=== PATIENT | male | born 1985 | race Caucasian/White ===

== ENCOUNTER 2019-02-12 12:55 | Emergency (ER) | payer OTHER ==
[~2019-02-12] VITALS: Ht 177.8 cm; Wt 121.1 kg
[2019-02-12 13:01] VITALS: BP 144/105
--- NOTE | 2019-02-12 13:01 | NUR ---
PT ARRIVED TO ED C/O HIGH BLOOD PRESSURE X THIS AM. PT DENIES ANY PAIN,. 4MM PERRLA. NO TRIPP,N,V. SKIN IS WARM TO TOUCH AND HAS A RASH ON LEFT UPPER ARM. PT STATES HE TOOK IS BP MED LISONPRIL 2HR AGO. PT ALSO STATES HE FEELS TINGLNG SENSATION ON LEFT ARM. CMS INTACT. VSS. NO DISTRESS NOTED. DENIES ANY HEAD TRUAMA OR INJURY. NKA. PMH: HTN, HIGH CHOLESTEROL.
--- NOTE | 2019-02-12 13:05 | NUR ---
PTS BP ON R ARM IS 140/99 PTS BP ON L ARM IS 144/105
--- NOTE | 2019-02-12 13:06 | NUR ---
PT AMB TO BED 1 WITH STEADY GAIT
--- NOTE | 2019-02-12 14:08 | NUR ---
TRASNFER TO CT VIA WHEELCHAIR.
[2019-02-12 14:37] LABS: BASOPHILS % (AUTO) 0.6 % (0.0-2.0); EOSINOPHILS # (AUTO) 0.2 K/uL (0-0.4); EOSINOPHILS % (AUTO) 2.3 % (0.0-4.0); HEMOGLOBIN 17.6 g/dL (12.0-18.0); LYMPHOCYTES # (AUTO) 1.9 K/uL (2.0-11.5); LYMPHOCYTES % (AUTO) 28.4 % (20.5-51.1); MEAN CORPUSCULAR HEMOGLOBIN 32 pg (27-31); MEAN CORPUSCULAR HGB CONC 35 g/dL (33-37); MEAN CORPUSCULAR VOLUME 91.4 fL (80-94); MONOCYTES # (AUTO) 0.4 K/uL (0.8-1.0); MONOCYTES % (AUTO) 6.6 % (1.7-9.3); NEUTROPHILS # (AUTO) 4.2 K/uL (1.8-7.7); NEUTROPHILS % (AUTO) 62.1 % (42.2-75.2); PLATELET COUNT (AUTO) 238 K/uL (140-450); RED BLOOD CELL COUNT(AUTO) 5.58 MIL/uL (4.20-6.10); RED CELL DISTRIBUTION WIDTH 13.3 % (11.6-13.7); WHITE BLOOD COUNT (AUTO) 6.8 K/uL (4.8-10.8)
[2019-02-12 14:46] LABS: CARBON DIOXIDE 30.2 mmol/L (21-32); CREATININE 0.8 mg/dL (0.7-1.3); POTASSIUM 3.2 mmol/L (3.5-5.1)
[2019-02-12 15:22] LABS: BARBITURATE, URINE NEG. ng/ml (NEG <=200); BENZODIAZEPINE, URINE NEG. ng/mL (NEG <=200); CANNABINOID, URINE NEG. ng/mL (NEG <=50); COCAINE, URINE NEG. ng/mL (NEG <=300); OPIATE, URINE NEG. ng/mL (NEG <=2000); PHENCYCLIDINE SCREEN,URINE NEG. ng/mL (NEG <=25)
--- NOTE | 2019-02-12 16:00 | NUR ---
PT STATES HE WOULD LIKE TO LEAVE STATES " I HAVE ALOT OF THINGS TO DO CAN I FOLLOW UP WITH MY PCP AND GET THESE LABS DONE, IM FEELING BETTER ALREADY". DR GARCIA MADE AWARE OF PT STATUS.
[2019-02-12] MEDS ORDERED: POTASSIUM CHLORIDE 10 MEQ TABER PO ONE (16:50)
[2019-02-12 17:16] VITALS: BP 143/90
--- NOTE | 2019-02-12 17:16 | NUR ---
DPatient discharged with v/s stable. Written and verbal after care instructions given and explained. Patient verbalized understanding. Ambulatory with steady gait. All questions addressed prior to discharge. Advised to follow up with PMD.
== END 2019-02-12 17:16 | disposition home or self-care (01) ==
LOC: MED 12:55
DX: I10 Essential (primary) hypertension (principal); R20.2 Paresthesia of skin; E78.00 Pure hypercholesterolemia, unspecified
CPT/HCPCS: 36415; 70450; 80048; 80305; 84484; 85025; 93005; 99284

== ENCOUNTER 2019-06-11 18:52 | Observation (INO) | payer OTHER ==
[~2019-06-11] VITALS: Ht 180.3 cm; Wt 122.0 kg
[2019-06-11 10:12] VITALS: BP 142/95
--- NOTE | 2019-06-11 10:12 | NUR ---
PATIENT ARRIVED FROM ER VIA GURNEY. NO DISTRESS NOTED. DENIES ANY PAIN. AAOX4, CALM, COOPERATIVE, SKIN COLOR APPROPRIATE TO ETHNICITY, WARM TO TOUCH. SKIN INTACT. IV SITE INTACT, PATENT, ON SALINE LOCK. RESPIRATIONS EVEN, UNLABORED, ON ROOM AIR. ORIENTED PATIENT TO ROOM AND CALL LIGHT. REVIEWED PLAN OF CARE WITH PATIENT. PATIENT VERBALIZED COMPLETE UNDERSTANDING. SAFETY MEASURES IN PLACE, CALL LIGHT WITHIN REACH. WILL CONTINUE TO MONITOR.
[2019-06-11 19:01] VITALS: BP 152/94
--- NOTE | 2019-06-11 19:22 | NUR ---
BIB SELF REPORTS BEING SEEN BY PCP TOOL MAKER BENCH. STATES SHE FORGOT TO GIVE HIM A REFILL ON HIS MEDICATION FOR HTN AND HLD. PATIENT ALSO STATES HE IS HAVING NUMBNESS AND TINGLING IN HIS LEFT ARM. PATIENT STATES HE HAS HAD THESE SYMPTOMS IN THE PAST WHEN HE HAD A TIA. PATIENT STATES HE DOES NOT FEEL HIMSELF. PUPILS EQUAL AND REACTIVE, SPEECH CLEAR. LUNGS CLEAR. REPORTS COUGH AND COLD SYMPTOMS BUT RECIEVED TREATMENT FOR THOSE SYMPTOMS BY PCP. HOOKED UP TO MONITOR. BP HIGH. ERMD AWARE OF STATUS.
--- NOTE | 2019-06-11 19:24 | NUR ---
PATIENT ASSESSMENT COMPLETED. BASED ON NEW INFORMATION PROVIDED BY PATIENT. RISHI LEVEL CHANGED TO LEVEL 3.
[2019-06-11 19:46] LABS: BASOPHILS % (AUTO) 0.5 % (0.0-2.0); EOSINOPHILS # (AUTO) 0.3 K/uL (0-0.4); EOSINOPHILS % (AUTO) 4.8 % (0.0-4.0); HEMATOCRIT 42.6 % (36-52); HEMOGLOBIN 15.2 g/dL (12.0-18.0); LYMPHOCYTES # (AUTO) 1.4 K/uL (2.0-11.5); LYMPHOCYTES % (AUTO) 24.5 % (20.5-51.1); MEAN CORPUSCULAR HEMOGLOBIN 31 pg (27-31); MEAN CORPUSCULAR HGB CONC 36 g/dL (33-37); MEAN CORPUSCULAR VOLUME 86.5 fL (80-94); MONOCYTES # (AUTO) 0.6 K/uL (0.8-1.0); MONOCYTES % (AUTO) 11.3 % (1.7-9.3); NEUTROPHILS # (AUTO) 3.3 K/uL (1.8-7.7); NEUTROPHILS % (AUTO) 58.9 % (42.2-75.2); PLATELET COUNT (AUTO) 173 K/uL (140-450); RED BLOOD CELL COUNT(AUTO) 4.93 MIL/uL (4.20-6.10); RED CELL DISTRIBUTION WIDTH 13.6 % (11.6-13.7); WHITE BLOOD COUNT (AUTO) 5.7 K/uL (4.8-10.8)
--- NOTE | 2019-06-11 19:56 | NUR ---
DR. HANNA AT BEDSIDE.
[2019-06-11 20:02] LABS: ALBUMIN 3.8 g/dL (3.4-5.0); ANION GAP 6.7 (8-16); CARBON DIOXIDE 31.9 mmol/L (21-32); CREATININE 0.9 mg/dL (0.6-1.3); POTASSIUM 3.6 mmol/L (3.5-5.1); TOTAL BILIRUBIN 0.6 mg/dL (0.0-1.0)
--- NOTE | 2019-06-11 20:29 | NUR ---
PT WAS TAKEN TO CT BY WHEEL CHAIR
--- NOTE | 2019-06-11 21:44 | NUR ---
AMBULATED TO THE RESTROOM INDEPENDANTLY
--- NOTE | 2019-06-11 22:10 | NUR ---
PT ADMITTED TO TELE UNIT UNDER THE CARE OF DR TORO. TRASPORTED ON MONITOR ON [facility]. PT STABLE DURING TRANSFER. REPORT GIVEN TO GONZÁLEZ LANDEROS.
[2019-06-11] MEDS ORDERED: ATOR10TA PO (22:17)
[2019-06-11] MEDS ORDERED: LISI10TA11 PO (22:32)
[2019-06-11] MEDS ORDERED: HYDROcodone/APAP 5/325 MG 1 TAB TAB PO PRN (22:45)
[2019-06-11] MEDS ORDERED: ACETAMINOPHEN 325 MG TAB PO PRN (22:45)
[2019-06-11] MEDS ORDERED: NITROGLYCERIN 0.4 MG TAB SL PRN (22:45)
[2019-06-11] MEDS ORDERED: ZOLPIDEM 5 MG TAB PO PRN (22:45)
[2019-06-11] MEDS ORDERED: ONDANSETRON 4 MG/2 ML VIAL IVP PRN (22:45)
[2019-06-11] MEDS ORDERED: NACL 0.45% 1,000 ML IV ONE (23:30)
[2019-06-12] MEDS: OSELTAMIVIR PHOSPHATE 75 MG CAP PO SCH ×2 (00:09→08:53)
--- NOTE | 2019-06-12 00:17 | NUR ---
PATIENT SITTING DOWN IN BED WATCHING TV. NO DISTRESS NOTED. SCHEDULED MEDICATIONS DUE GIVEN. WILL CONTINUE TO MONITOR.
[2019-06-12] MEDS ORDERED: INFLUENZA VACCINE QUAD 0.5 ML SYR IMVAC PRN (01:25)
--- NOTE | 2019-06-12 02:17 | NUR ---
PATIENT LYING DOWN IN BED SLEEPING, AROUSABLE BY VOICE. NO DISTRESS NOTED. WILL CONTINUE TO MONITOR.
[2019-06-12 04:00] VITALS: BP 130/88
--- NOTE | 2019-06-12 04:55 | NUR ---
PATIENT LYING DOWN IN BED SLEEPING, AROUSABLE BY VOICE. NO DISTRESS NOTED. DENIES ANY PAIN. WILL CONTINUE TO MONITOR.
[2019-06-12 07:01] LABS: HEMATOCRIT 43.5 % (36-52); HEMOGLOBIN 15.7 g/dL (12.0-18.0); MEAN CORPUSCULAR HEMOGLOBIN 31 pg (27-31); MEAN CORPUSCULAR HGB CONC 36 g/dL (33-37); MEAN CORPUSCULAR VOLUME 86.1 fL (80-94); PLATELET COUNT (AUTO) 177 K/uL (140-450); RED BLOOD CELL COUNT(AUTO) 5.06 MIL/uL (4.20-6.10); RED CELL DISTRIBUTION WIDTH 13.7 % (11.6-13.7); WHITE BLOOD COUNT (AUTO) 7.5 K/uL (4.8-10.8)
--- NOTE | 2019-06-12 07:25 | NUR ---
RECEIVED PT FROM FIBERGLASS BOAT ASSEMBLY SUPERVISOR NURSEGONZÁLEZ, PT IS ASLEEP AND LYING ON THE BED WITH SIDE RAILS AND CALL L;IGHT WITHIN REACH,VISIBLE CHEST RISE, PT IS ON DROPLET ISOLATION FOR INFLUENZA A POSITIVE, ON ROOM AIR AND IV LINE INTACT ON THE LEFT AC G. 20 WITH 1/2 NS INFUSING AT 70ML/HR, NO SIGN OF DISTRESS NOTED AND WILL MONITOR PT.
[2019-06-12 07:38] LABS: EOSINOPHILS % (MANUAL) 5 % (0-4); LYMPHOCYTES % (MANUAL) 30 % (20-46); MONOCYTES % (MANUAL) 11 % (5-12)
[2019-06-12 08:00] VITALS: BP 157/96
[2019-06-12 08:03] LABS: ALBUMIN 3.7 g/dL (3.4-5.0); ANION GAP 12.1 (8-16); CARBON DIOXIDE 30.5 mmol/L (21-32); CREATININE 0.9 mg/dL (0.6-1.3); POTASSIUM 3.6 mmol/L (3.5-5.1); TOTAL BILIRUBIN 0.6 mg/dL (0.0-1.0)
--- NOTE | 2019-06-12 08:53 | NUR ---
PT WAS GIVEN THE SCHEDULED AM MEDICATIONS NOW, PARAMETER CHECKED AND TOLERATED IT. WILL MONITOR PT.
[2019-06-12] MEDS ORDERED: LISINOPRIL 10 MG TAB PO SCH (09:00)
[2019-06-12] MEDS ORDERED: ECOTRIN 81 MG TABEC PO SCH (09:00)
[2019-06-12] MEDS ORDERED: ENOXAPARIN 40 MG/0.4 ML SYR SUBQ SCH (09:00)
--- NOTE | 2019-06-12 09:03 | NUR ---
PATIENT HAS BEEN SCREENED AND CATEGORIZED MODERATE NUTRITION RISK. PATIENT WILL BE SEEN WITHIN 3-5 DAYS OF ADMISSION. 06/15/2019-06/17/[address]
--- NOTE | 2019-06-12 09:45 | NUR ---
DR. TORO CAME TO PT'S ROOM AND SPOKE TO PT REGARDING PLAN OF CARE.
[2019-06-12 12:00] VITALS: BP 138/90
--- NOTE | 2019-06-12 14:25 | NUR ---
DR. XOING WENT TO THE PT'S ROOM ASSESSED AND TALKED TO PT.
[2019-06-12 14:42] VITALS: BP 142/100
--- NOTE | 2019-06-12 15:16 | NUR ---
Boiler Tender Note: [facility] Patient: Micha Herzog : 1985 Age/Sex: 33/M Unit#: [id number] Room/Bed: 113/A User: Casey Garcia Date: 06/12/19 15:11 Type: CM: Discharge Planning Basic Screen: Yes High Risk DC Screen [place]: [place] Relationship: [id number] Pre-Admission Living Arrangements: Lives with Other Prior ADL Independent Current Home Health Name/Tel: N/A Current Name/Tel: N/A Current Hospice Name/Tel: N/A Current Dialysis Name/Tel: N/A Healthcare Decision Maker: Patient Advance Directive No Physician Orders for Life Sustaining Treatment Form No Information Taught: Advance Directive Person Taught: Patient Teaching Tools: Verbal Factors Affecting Learning: None Participation Level: Refused Evaluation: Verbalizes Understanding Needs Additional Education: No Discipline: Case Mgt/Social Svcs Tentative Discharge Plan/Destination: No Needs Identified Will require assistance post discharge: No Referred to Performance Reporter: No Tentative Discharge Plan Summary: Patient is a 33-year-old male admitted for chest pain. Patient has PMHX of hypertension, hyperlipedemia, obesity, and TIA. Patient was admitted from home where hel alphonso with his children and [id number]. SW met with patient at bedside to verify demographics. Patient reported no history of mental health and no history of susbtance abuse. Tentative discharge plan is for patient to return home. No further needs identified. Signature: ISAIAH Franklin Date: Jun 12, 2019 Time: 15:15
[2019-06-12 16:42] VITALS: BP 142/100
--- NOTE | 2019-06-12 16:42 | NUR ---
DISCHARGED PT TO HOME WITH FAMILY, DISCHARGED TEACHINGS AND PRESCRIPTION INSTRUCTION GIVEN TO PT AND PT VERBALIZED UNDERSTANDING. IV LINE AND ARM BAND REMOVED, PT REFUSED TO RECEIVE FLU VACCINE AND VERBALIZED THAT HE WANTS TO GET BETTER FIRST AND WILL GET FLU VACCINE WHEN HE IS BETTER. PT IS STABLE AT THIS TIME.
[2019-06-12] MEDS ORDERED: ATORVASTATIN 20 MG TAB PO SCH (21:00)
== END 2019-06-12 16:45 | disposition home or self-care (01) ==
LOC: MED 18:52 → MMU 21:46 → MTU 22:12
PROVIDERS: ADMIT Internal Medicine Pulmonary Disease; ATTEND Internal Medicine Pulmonary Disease
DX: J10.1 Influenza due to other identified influenza virus with other respiratory manifestations (principal); R07.9 Chest pain, unspecified; R51 Headache; I10 Essential (primary) hypertension; E78.5 Hyperlipidemia, unspecified; E66.9 Obesity, unspecified; Z86.73 Personal history of transient ischemic attack (TIA), and cerebral infarction without residual deficits; Z87.891 Personal history of nicotine dependence
CPT/HCPCS: 36415; 70450; 80053; 84484; 85025; 87081; 87804; 93005; 96372; 99285; G0378; J1650

== ENCOUNTER 2019-06-16 01:10 | Inpatient (IN) | payer OTHER ==
[~2019-06-16] VITALS: Ht 180.3 cm; Wt 127.5 kg
[2019-06-16 01:10] VITALS: BP 158/106
[~2019-06-16 01:10] MED LIST: ATOR10TA PO; LISI10TA11 PO
--- NOTE | 2019-06-16 01:22 | NUR ---
pt ambulated to bed #6.
--- NOTE | 2019-06-16 01:23 | NUR ---
33 Y/O MALE C/O CHEST PAIN X 1HR. RATES PAIN 7/10 AND DESCRIBES IT TIGHTNESS AND IS NONRADIATING. VSS. SOB AND DIAPHORESIS PRESENT. PT WGOT OFF WORK AT 0100 TODAY BEFORE ONSET OF SYMPTOMS STARTED. LUNG SOUNDS CLEAR ALL THROUGHOUT. HEART SOUND S1S2 PRESENT. CAP REFILL < 3, SKIN IS WARM TO TOUCH, NO EDEMA PRESENT. A & O X4. STEADY GAIT. RADIAL PULSES +2 PRESENT ON BUE. +NAUSEA. PT STATES HE WAS ADMITTED ON FRIDAY WAS D/C FRIDAY FOR HAVING SOB. NKA. PMH: HTN, TIA, HIGH CHOLESTEROL, GALL BLADDER REMOVAL,
--- NOTE | 2019-06-16 01:23 | NUR ---
Dr. Mcguire examining patient.
[2019-06-16] MEDS ORDERED: NACL 0.9% 1,000 ML IV ONE (01:30)
[2019-06-16] MEDS ORDERED: ASPIRIN 81 MG TAB.CHEW PO ONE (01:30)
[2019-06-16] MEDS ORDERED: NITROGLYCERIN 2% 1 GM PKT TP ONE (01:30)
[2019-06-16 01:43] LABS: EOSINOPHILS # (AUTO) 0.2 K/uL (0-0.4); HEMOGLOBIN 15.1 g/dL (12.0-18.0); LYMPHOCYTES # (AUTO) 2.8 K/uL (2.0-11.5); MONOCYTES # (AUTO) 0.4 K/uL (0.8-1.0); NEUTROPHILS # (AUTO) 3.2 K/uL (1.8-7.7); WHITE BLOOD COUNT (AUTO) 6.6 K/uL (4.8-10.8)
--- NOTE | 2019-06-16 01:46 | NUR ---
XR AT BEDSIDE.
[2019-06-16 01:48] LABS: BASOPHILS % (AUTO) 0.4 % (0.0-2.0); LYMPHOCYTES % (AUTO) 41.7 % (20.5-51.1); MEAN CORPUSCULAR HEMOGLOBIN 31 pg (27-31); MEAN CORPUSCULAR HGB CONC 36 g/dL (33-37); MEAN CORPUSCULAR VOLUME 86.2 fL (80-94); MONOCYTES % (AUTO) 6.1 % (1.7-9.3); NEUTROPHILS % (AUTO) 48.8 % (42.2-75.2); PLATELET COUNT (AUTO) 200 K/uL (140-450); RED BLOOD CELL COUNT(AUTO) 4.89 MIL/uL (4.20-6.10); RED CELL DISTRIBUTION WIDTH 13.5 % (11.6-13.7)
--- NOTE | 2019-06-16 01:52 | NUR ---
PUT PT ON 2L NC FOR SOB AND SPO2 BEING 93%. PT SPO2 NOW IS 99% ON 2L NC.
[2019-06-16 01:53] LABS: HEMATOCRIT 45.3 % (36-52)
[2019-06-16 01:57] LABS: ANION GAP 8.2 (8-16); CARBON DIOXIDE 31.2 mmol/L (21-32); CREATININE 0.9 mg/dL (0.6-1.3); POTASSIUM 3.4 mmol/L (3.5-5.1); TOTAL BILIRUBIN 0.6 mg/dL (0.0-1.0)
--- NOTE | 2019-06-16 02:15 | NUR ---
LAB CALLED; CRITICAL LAB VALUE REPORT: TROP: 0.113. DESIREE JOSE IS AWARE.
[2019-06-16] MEDS ORDERED: MORPHINE SULFATE 2 MG/ML SYR IVP ONE (02:25)
[2019-06-16] MEDS ORDERED: ENOXAPARIN 120 MG/0.8 ML SYR SUBQ ONE ×2 (02:25→02:35)
[2019-06-16] MEDS ORDERED: ACETAMINOPHEN 325 MG TAB PO PRN (02:30)
[2019-06-16] MEDS ORDERED: DOCUSATE SODIUM 100 MG GELCAP PO PRN (02:30)
[2019-06-16 02:54] LABS: FREE T4 (FREE THYROXINE) 0.96 ng/dL (0.76-1.46); MAGNESIUM 1.9 mg/dL (1.8-2.4); PHOSPHORUS 3.2 mg/dL (2.5-4.9); THYROID STIMULATING HORMONE 1.18 uIU/mL (0.34-3.74)
[2019-06-16] MEDS ORDERED: MULTIVITAMIN-12 10 ML, THIAMINE 100 MG, MAGNESIUM SULFATE 50% 2,000 MG, FOLIC ACID 1 MG... IV SCH ×5 (03:05)
[2019-06-16] MEDS ORDERED: LORazepam 2 MG/ML VIAL IVP PRN (03:05)
[2019-06-16 03:08] LABS: APPEARANCE,URINE CLEAR (CLEAR); BILIRUBIN,URINE NEGATIVE (NEGATIVE); BLOOD, URINE NEGATIVE (NEGATIVE); COLOR,URINE YELLOW (YELLOW); LEUKOCYTE ESTERASE ,URINE NEGATIVE (NEGATIVE); NITRITE, URINE NEGATIVE (NEGATIVE); UGLUCOSE NEGATIVE (NEGATIVE)
--- NOTE | 2019-06-16 03:10 | NUR ---
Patient will be admitted to care of dr. east. Admited to tele. Will go to room 111a. Belongings list completed. Report to gunnar hathaway.
--- NOTE | 2019-06-16 03:10 | NUR ---
PT ARRIVED AT UNIT VIA GURNEY, PT STABLE, NO DISTRESS NOTED, AMBULATED TO BED, TOLERATED WELL, RECEIVED REPORT ASSISTANT FLOOR COVERING PRINTER MAEGAN, IV TO R AC 20 G PATENT INTACT, PT ON 2LPM O2 VIA NC, NO SOB NOTED, ORIENT PT TO BED, ROOM, CALL LIGHT, MRSA SWAB TAKEN, V/S TAKEN, INITIAL ASSESSMENT DONE, ALL SAFETY PRECAUTION MET, CALL LIGHT WITHIN REACH, WILL CONTINUE TO MONITOR.
[2019-06-16 03:17] VITALS: BP 138/91
[2019-06-16 03:32] LABS: BARBITURATE, URINE NEG. ng/ml (NEG <=200); BENZODIAZEPINE, URINE NEG. ng/mL (NEG <=200); CANNABINOID, URINE NEG. ng/mL (NEG <=50); COCAINE, URINE NEG. ng/mL (NEG <=300); OPIATE, URINE NEG. ng/mL (NEG <=2000); PHENCYCLIDINE SCREEN,URINE NEG. ng/mL (NEG <=25)
[2019-06-16] MEDS: NACL 0.9% 1,000 ML IV SCH ×3 (04:00→20:52)
--- NOTE | 2019-06-16 04:00 | NUR ---
DR CLOUD AT BEDSIDE TALKING TO PT.
[2019-06-16] MEDS ORDERED: NITROGLYCERIN 0.4 MG TAB SL PRN (04:55)
--- NOTE | 2019-06-16 07:18 | NUR ---
ENDORSED PT TO DAY SHIFT NURSE KATIE RN, PT STABLE, NO DISTRESS NOTED, CALL LIGHT WITHIN REACH
--- NOTE | 2019-06-16 07:26 | NUR ---
SHIFT REPORT RECEIVED FROM CLINICAL SUPPORT SPECIALIST NURSE. PT IS IN BED SLEEPING. NO DISTRESS NOTED. WILL CONTINUE TO MONITOR. CALL LIGHT IN REACH.
[2019-06-16] MEDS: ONDANSETRON 4 MG/2 ML VIAL IM/IVP PRN ×2 (07:59→17:29)
[2019-06-16 08:00] VITALS: BP 108/72
--- NOTE | 2019-06-16 08:48 | NUR ---
PATIENT HAS BEEN SCREENED AND CATEGORIZED MODERATE NUTRITION RISK. PATIENT WILL BE SEEN WITHIN 3-5 DAYS OF ADMISSION. 06/18/19 06/20/[address]
[2019-06-16] MEDS ORDERED: HYDROcodone/APAP 7.5/325 MG 1 TAB PO PRN (08:55)
[2019-06-16] MEDS ORDERED: CYCLOBENZAPRINE 10 MG TAB PO PRN (08:55)
[2019-06-16] MEDS: ASPIRIN 81 MG TAB.CHEW PO SCH (09:21)
[2019-06-16] MEDS: LISINOPRIL 10 MG TAB PO SCH (09:39)
[2019-06-16] MEDS: METOPROLOL 25 MG TAB PO SCH ×2 (09:40→20:37)
--- NOTE | 2019-06-16 10:58 | NUR ---
PT IS IN BED SLEEPING. HOWEVER PT IS RESPONSIVE WHEN CALLED. NO DISTRESS NOTED. NO COMPLAINS OF PAIN . WILL CONTINUE TO MONITOR. CALL LIGHT IN REACH.
[2019-06-16 12:00] VITALS: BP 110/64
--- NOTE | 2019-06-16 13:24 | NUR ---
PT IS IN SLEEPING IN BED. PT IS RESPONSIVE WHEN CALLED.. NO COMPLAINS OF PAIN. WILL CONTINUE TO MONITOR. CALL LIGHT IN REACH.
[2019-06-16] MEDS: ENOXAPARIN 120 MG/0.8 ML SYR SUBQ SCH ×2 (13:39→20:42)
[2019-06-16 16:00] VITALS: BP 119/84
--- NOTE | 2019-06-16 16:49 | NUR ---
DISCHARGE PLANNING: THIS IS A 33 Y/O MALE PATIENT FROM HOME, WHO CAME IN DUE TO CHEST PAIN. PAST MEDICAL HISTORY INCLUDE HTN, HYPERLIPIDEMIA, TIA AND OBESITY. INITIAL DIAGNOSIS OF CHEST PAIN AND ELEVATED TROPONIN. CURRENT LABS INCLUDE WBC 6.6, H/H 15.1/45.3, NA/K 137/3.4, BUN/CREA 10/0.9. CARDIO CONSULT IN PLACE. DC PLAN BACK TO HOME ONCE STABLE. Addendum: 06/17/19 at 1517 by Melissa Gerber CM DC PLANNING: SEEN BY WHANAU SUPPORT WORKER , NORMAL ECHO CONTINUE CARDIAC MEDS RECOMMENDED OUT PT STRESS TEST DC PLAN TO GO HOME 06/18/19 RA TO FOLLOW
--- NOTE | 2019-06-16 18:00 | NUR ---
PT IS SITTING IN BED AT THIS TIME. PT IS EATING DINNER. PT SAYS HE DOES NOT HAVE GOOD APPETITE. SAFETY MEASURES IN CHECK. CALL LIGHT IN REACH.
[2019-06-16] MEDS ORDERED: POTASSIUM CHLORIDE 10 MEQ TABER PO SCH (18:10)
--- NOTE | 2019-06-16 19:25 | NUR ---
SHIFT REPORT GIVEN TO BILLING CUSTOMER SERVICE REPRESENTATIVE NURSE. PT IS N STABLE CONDITION. CALL LIGHT IN REACH.
--- NOTE | 2019-06-16 19:26 | NUR ---
RECEIVED BEDSIDE REPORT FROM DAY RN. PT IS AAOX4. RESPIRATIONS ARE EQUAL AND UNLABORED ON ROOM AIR. PT IS ON DROPLET PRECAUTION FOR TESTING INFLU A + ON LAST ADMISSION CURRENTLY NO TAMIFLU PER RN WILL F/U WITH MD. PT IS AMBULATORY AND ABLE TO MAKE NEEDS KNOWN. SKIN IS INTACT AND AMBULATORY. IV ON RAC 20G NS INFUSING AT 100ML/H PER ORDERS. DX CHEST PAIN AND ELEVATED TROP. LATEST TROP: 0.115 NEXT TO BE DRAWN TOMORROW AM AT 0600. POC DISCUSSED WITH PT. CALL LIGHT IS WITHIN REACH. WILL CONTINUE TO MONITOR.
[2019-06-16 20:00] VITALS: BP 116/74
[2019-06-16] MEDS: ATORVASTATIN 20 MG TAB PO SCH (20:36)
--- NOTE | 2019-06-16 20:37 | NUR ---
OSCAR MEDICATIONS GIVEN PER ORDERS. PT DENIES ANY CHEST PAIN TODAY STATES HES BEEN HAVING A HEADACHE BUT NOT AT THIS TIME. POC DISCUSSED WITH PT. PT VERBALIZED UNDERSTANDING. PER MD WILL PUT IN ORDER FOR TAMIFLU PT WAS HERE ON 06/11 AND WAS POSITIVE FOR INFLUENZA A+. ALL SAFETY MEASURES ARE IN PLACE. WILL CONTINUE TO MONITOR.
[2019-06-16] MEDS: OSELTAMIVIR PHOSPHATE 75 MG CAP PO SCH (21:10)
[2019-06-16] MEDS: ZOLPIDEM 5 MG TAB PO PRN (21:10)
--- NOTE | 2019-06-16 21:10 | NUR ---
TAMIFLU GIVEN PER ORDERS. PER RESIDENT PT TO GET TWO MORE DOSES ONE TONIGHT AND ANOTHER TOMORROW AM. ADMINISTERED PRN AMBIEN. EDUCATED PT ON MEDICATIONS VERBALIZED UNDERSTANDING. ALL NEEDS MET AT THIS TIME. CALL LIGHT IS WITHIN REACH.
--- NOTE | 2019-06-16 22:30 | NUR ---
PATIENT IS SLEEPING COMFORTABLY IN BED WITH EYES CLOSED. CHEST RISE AND FALL NOTED. CALL LIGHT IS WITHIN REACH. WILL CONTINUE TO MONITOR.
[2019-06-17] VITALS: BP 133/76
--- NOTE | 2019-06-17 00:15 | NUR ---
VITAL SIGNS ARE WITHIN NORMAL LIMITS. ALL SAFETY MEASURES ARE IN PLACE. CALL LIGHT IS WITHIN REACH. WILL CONTINUE TO MONITOR.
--- NOTE | 2019-06-17 02:30 | NUR ---
MADE ROUNDS. PT IS SLEEPING COMFORTABLY IN BED WITH EYES CLOSED. SAFETY MEASURES ARE IN PLACE. CALL LIGHT IS WITHIN REACH.
[2019-06-17 04:00] VITALS: BP 144/84
--- NOTE | 2019-06-17 04:05 | NUR ---
VITAL SIGNS ARE WITHIN NORMAL LIMITS. SAFETY MEASURES ARE IN PLACE. WILL CONTINUE TO MONITOR.
[2019-06-17 07:01] LABS: BASOPHILS % (AUTO) 0.5 % (0.0-2.0); EOSINOPHILS # (AUTO) 0.2 K/uL (0-0.4); EOSINOPHILS % (AUTO) 2.7 % (0.0-4.0); HEMATOCRIT 41.6 % (36-52); HEMOGLOBIN 14.9 g/dL (12.0-18.0); LYMPHOCYTES # (AUTO) 2.9 K/uL (2.0-11.5); LYMPHOCYTES % (AUTO) 46.7 % (20.5-51.1); MEAN CORPUSCULAR HEMOGLOBIN 31 pg (27-31); MEAN CORPUSCULAR HGB CONC 36 g/dL (33-37); MEAN CORPUSCULAR VOLUME 87.4 fL (80-94); MONOCYTES # (AUTO) 0.3 K/uL (0.8-1.0); MONOCYTES % (AUTO) 5.4 % (1.7-9.3); NEUTROPHILS # (AUTO) 2.8 K/uL (1.8-7.7); NEUTROPHILS % (AUTO) 44.7 % (42.2-75.2); PLATELET COUNT (AUTO) 202 K/uL (140-450); RED BLOOD CELL COUNT(AUTO) 4.76 MIL/uL (4.20-6.10); RED CELL DISTRIBUTION WIDTH 13.5 % (11.6-13.7); WHITE BLOOD COUNT (AUTO) 6.2 K/uL (4.8-10.8)
--- NOTE | 2019-06-17 07:17 | NUR ---
GAVE BEDSIDE REPORT TO DAY RN. PT ENDORSED IN STABLE CONDITION.
[2019-06-17 07:18] LABS: ANION GAP 4.4 (8-16); CARBON DIOXIDE 34.3 mmol/L (21-32); CREATININE 0.8 mg/dL (0.6-1.3); POTASSIUM 3.7 mmol/L (3.5-5.1)
--- NOTE | 2019-06-17 07:20 | NUR ---
RECEIVED PT FROM LEGAL STENOGRAPHER NURSE . PT IS AWAKE ORIENTED WITH PERIPHERAL LINE G20 ON RIGHT AC. NO C/O PAIN, NO SOB AND AFEBRILE. DROPLET PRECAUTION FOR FLU A. OBSERVED ISO PRECAUTION. WILL CONT TO MONITOR PATIENT.
[2019-06-17 07:30] LABS: MAGNESIUM 2.2 mg/dL (1.8-2.4); PHOSPHORUS 2.7 mg/dL (2.5-4.9)
[2019-06-17 08:00] VITALS: BP 130/80
[2019-06-17] MEDS: OSELTAMIVIR PHOSPHATE 75 MG CAP PO SCH (08:09)
[2019-06-17] MEDS: LISINOPRIL 10 MG TAB PO SCH (08:10)
[2019-06-17] MEDS: METOPROLOL 25 MG TAB PO SCH ×2 (08:11→21:00)
[2019-06-17] MEDS: ASPIRIN 81 MG TAB.CHEW PO SCH (08:11)
--- NOTE | 2019-06-17 08:20 | NUR ---
DR LOVE AND RESIDENT'S ROOM. SPOKE TO PT ABOUT PLAN OF CARE. PT VERBALIZED UNDERSTANDING. WILL CONT TO MONITOR PT.
[2019-06-17] MEDS: ENOXAPARIN 120 MG/0.8 ML SYR SUBQ SCH (08:25)
--- NOTE | 2019-06-17 08:25 | NUR ---
DUE MEDS GIVEN TO PT. PARAMETERS CHECKED. BP 130/80, MD 68 MANUALLY, PLT 202. NO SIGN OF DISTRESS. WILL CONT TO MONITOR
--- NOTE | 2019-06-17 08:30 | NUR ---
DR XIONG, CAME TO PT ROOM ASSESSED AND S[POKE TO PT. STATED PLAN OF CARE. PT VERBALIZED UNDERSTANDING, WAS INFORMED OF LATEST TROPONIN 0.127. MD VERBALIZED TO STOP CHECKING. ACKNOWLEDGED AND WILL CONT TO MONITOR PT
[2019-06-17 08:39] LABS: CHOL/HDL RATIO 4.5 (1-4.5)
[2019-06-17] MEDS: NACL 0.9% 1,000 ML IV SCH ×2 (10:28→19:02)
[2019-06-17 12:03] VITALS: BP 131/77
[2019-06-17 16:00] VITALS: BP 141/93
--- NOTE | 2019-06-17 19:02 | NUR ---
PT WAS GIVEN TYLENOL FOR C/O HEADACHE AND A NEW BAG OF NS WAS STARTED TO PT NOW.
--- NOTE | 2019-06-17 19:25 | NUR ---
ENDORSED PT TO MAIN LINE STATION ENGINEER NURSEJUHI FOR CONTINUITY OF CARE. Addendum: 06/17/19 at 1932 by Keya Farrell RN ENDORSED PT TO MAIN LINE STATION ENGINEER NURSEJUHI FOR CONTINUITY OF CARE Addendum: 06/17/19 at 1932 by Keya Farrell RN ENDORSED PT TO MAIN LINE STATION ENGINEER NURSEMIKAEL FOR CONTINUITY OF CARE Addendum: 06/17/19 at 1933 by Keya Farrell RN ENDORSED PT TO MAIN LINE STATION ENGINEER NURSEMIKAEL FOR CONTINUITY OF CARE
--- NOTE | 2019-06-17 19:29 | NUR ---
RECEIVED BEDSIDE REPORT FROM DAY RN. PT IS AAOX4. RESPIRATIONS ARE EQUAL AND UNLABORED ON ROOM AIR. PT IS ON DROPLET PRECAUTION FOR TESTING INFLU A + ON LAST ADMISSION CURRENTLY LAST DOSE OF TAMIFLU GIVEN THIS AM. PT IS AMBULATORY AND ABLE TO MAKE NEEDS KNOWN. SKIN IS INTACT AND AMBULATORY. IV ON RAC 20G NS INFUSING AT 100ML/H PER ORDERS. DX CHEST PAIN AND ELEVATED TROP. LATEST TROP: 0.127. NO MORE TROP DRAWS PER TIRE MOLD ENGRAVER. PT STATES HAS HEADACHE 3/10 AT BACK OF HEAD, DAY RN JUST ADMINISTERED TYLENOL. WILL REASSESS PAIN IN 30MIN. POC DISCUSSED WITH PT. CALL LIGHT IS WITHIN REACH. WILL CONTINUE TO MONITOR.
[2019-06-17 20:00] VITALS: BP 143/90
[2019-06-17] MEDS: ATORVASTATIN 20 MG TAB PO SCH (20:59)
--- NOTE | 2019-06-17 21:00 | NUR ---
VITAL SIGNS ARE WITHIN NORMAL LIMITS. ALL OSCAR MEDICATION GIVEN PER ORDER. PT TOLERATED WELL. MEDICATION TEACHING GIVEN PT VERBALIZED UNDERSTANDING. ALL NEEDS MET. WILL CONTINUE TO MONITOR.
[2019-06-17] MEDS: ZOLPIDEM 5 MG TAB PO PRN (22:20)
--- NOTE | 2019-06-17 22:20 | NUR ---
ADMINISTERED PRN AMBIEN FOR C/C INSOMNIA PT TOLERATED WELL. GAVE PT A TUNA SANDWICH PER REQUEST. ALL SAFETY MEASURES ARE IN PLACE. CALL LIGHT IS WITHIN REACH.
[2019-06-18] VITALS: BP 136/79
--- NOTE | 2019-06-18 00:10 | NUR ---
VITAL SIGNS ARE WITHIN NORMAL LIMITS. ALL SAFETY MEASURES ARE IN PLACE. WILL CONTINUE TO MONITOR.
--- NOTE | 2019-06-18 01:00 | NUR ---
POWER WENT OFF FOR A SECOND AND THE BACK-UP GENERATOR CAME ON. CHECKED ON PT. PT IS SLEEPING COMFORTABLY WITH EYES CLOSED. CHEST RISE AND FALL NOTED. SAFETY MEASURES ARE IN PLACE. WILL CONTINUE TO MONITOR.
--- NOTE | 2019-06-18 02:15 | NUR ---
GAVE BEDSIDE REPORT TO RILEY. PT ENDORSED IN STABLE CONDITION.
--- NOTE | 2019-06-18 02:16 | NUR ---
RECEIVED BEDSIDE REPORT FROM DAY RN KIRAN FOR CONTINUOUS OF CARE, PT STABLE, NO DISTRESS NOTED, CALL LIGHT WITHIN REACH, WILL CONTINUE TO MONITOR.
[2019-06-18 04:00] VITALS: BP 117/74
--- NOTE | 2019-06-18 04:30 | NUR ---
CHECKED ON PT, PT SLEEPING, NO DISTRESS NOTED, V/S TAKEN, WNL CALL LIGHT WITHIN REACH, WILL CONTINUE TO MONITOR.
[2019-06-18] MEDS: NACL 0.9% 1,000 ML IV SCH (04:41)
[2019-06-18] MEDS ORDERED: IBUPROFEN 600 MG TAB PO PRN (05:55)
[2019-06-18 07:09] LABS: BASOPHILS # (AUTO) 0.1 K/uL (0.00-0.22); BASOPHILS % (AUTO) 1.1 % (0.0-2.0); EOSINOPHILS # (AUTO) 0.1 K/uL (0-0.4); EOSINOPHILS % (AUTO) 2.1 % (0.0-4.0); HEMOGLOBIN 14.8 g/dL (12.0-18.0); LYMPHOCYTES # (AUTO) 2.7 K/uL (2.0-11.5); LYMPHOCYTES % (AUTO) 38.5 % (20.5-51.1); MEAN CORPUSCULAR HEMOGLOBIN 31 pg (27-31); MEAN CORPUSCULAR HGB CONC 35 g/dL (33-37); MONOCYTES # (AUTO) 0.4 K/uL (0.8-1.0); MONOCYTES % (AUTO) 5.1 % (1.7-9.3); NEUTROPHILS # (AUTO) 3.7 K/uL (1.8-7.7); NEUTROPHILS % (AUTO) 53.2 % (42.2-75.2); PLATELET COUNT (AUTO) 211 K/uL (140-450); RED BLOOD CELL COUNT(AUTO) 4.83 MIL/uL (4.20-6.10); RED CELL DISTRIBUTION WIDTH 13.3 % (11.6-13.7); WHITE BLOOD COUNT (AUTO) 6.9 K/uL (4.8-10.8)
--- NOTE | 2019-06-18 07:26 | NUR ---
ENDORSED PT TO DAY SHIFT NURSE GEORGI LANDEROS, PT STABLE, NO DISTRESS NOTED, CALL LIGHT WITHIN REACH.
[2019-06-18 07:29] LABS: ANION GAP 7.6 (8-16); CARBON DIOXIDE 33.5 mmol/L (21-32); CREATININE 0.9 mg/dL (0.6-1.3); POTASSIUM 4.1 mmol/L (3.5-5.1)
[2019-06-18 07:35] LABS: MAGNESIUM 2.1 mg/dL (1.8-2.4); PHOSPHORUS 3.7 mg/dL (2.5-4.9)
--- NOTE | 2019-06-18 07:46 | NUR ---
RECEIVED REPORT FROM TIGRE LAUREANO FOR CONTINUATION OF CARE. PT IS IB BED SLEEPING BUT RESPONSIVE WHEN CALLED. WILL CONTINUE TO MONITOR. CALL LIGHT IN REACH.
[2019-06-18 08:00] VITALS: BP 130/87
[2019-06-18] MEDS ORDERED: ASPI81CT95 PO (08:49)
[2019-06-18] MEDS ORDERED: IBUP-2213 PO (08:49)
[2019-06-18] MEDS ORDERED: CYCL10TA14 PO (08:49)
[2019-06-18] MEDS: ASPIRIN 81 MG TAB.CHEW PO SCH (09:16)
[2019-06-18] MEDS: LISINOPRIL 10 MG TAB PO SCH (09:16)
[2019-06-18] MEDS: METOPROLOL 25 MG TAB PO SCH (09:16)
--- NOTE | 2019-06-18 09:30 | NUR ---
PT IS IN BED. PT IS AWAKE AND RESPONSIVE. NO DISTRESS NOTED. CALL LIGHT IN REACH.
--- NOTE | 2019-06-18 11:46 | NUR ---
PT WAS DISCHARGED TODAY. PT WASSTABLE ALERT. AWAKE AND RESPONSIVE. PT WALKED WITH A STEADY GAIT UPON DISCHARGE. PT WAS ACCOMPANIED BY FRIEND. SKIN INTACT. NO COMPLAINS OF PAIN REPORTED. VITALS SIGNS WITHIN NORMAL LEVELS. PRESCRIPTION SENT TO PHARMACT. BACK TO WORK NOTE GIVEN TO PATIENT. PT REFUSED FLU VACCINE. PT SAID HE WILL GET IT WITH HIS PCP. DISCHARGE INSTRUCTIONS GIVEN. MED INSTRUCTIONS GIVEN. MEDICATION SENT TO PHARMACY. ID BAND REMOVED. IV REMOVED. BLEEDING NOTED. PT WALKED TO CAR ACCOMPANIED BY FRIEND TO HIS CAR WITH A STEADY GAIT.
== END 2019-06-18 11:45 | disposition home or self-care (01) | DRG 152 ==
LOC: MED 01:10 → MTU 02:27
PROVIDERS: ADMIT General Practice; ATTEND General Practice
DX: J11.1 Influenza due to unidentified influenza virus with other respiratory manifestations (principal); I21.A1 Myocardial infarction type 2; I10 Essential (primary) hypertension; E78.5 Hyperlipidemia, unspecified; E66.01 Morbid (severe) obesity due to excess calories; Z86.73 Personal history of transient ischemic attack (TIA), and cerebral infarction without residual deficits; Z90.49 Acquired absence of other specified parts of digestive tract; Z68.39 Body mass index [BMI] 39.0-39.9, adult
CPT/HCPCS: 36415; 71045; 80048; 80053; 80305; 81003; 82150; 83036; 83690; 83735; 83880; 84100; 84134; 84439; 84443; 84484; 85025; 85379; 85610; 85730; 87081; 96361; 96372; 96374; 99285; A9153; J1644; J1650; J2270; J2405; J3411; J3475; J3490; J7030; Q0092

== ENCOUNTER 2019-08-30 04:44 | Inpatient (IN) | payer OTHER ==
[~2019-08-30] VITALS: Ht 180.3 cm; Wt 131.5 kg
[~2019-08-30 04:44] MED LIST changes: +ASPI81CT95 PO; -ATOR10TA PO; +CYCL10TA14 PO; +IBUP-2213 PO
[2019-08-30 04:53] VITALS: BP 150/102
[2019-08-30 05:34] LABS: BASOPHILS # (AUTO) 0.1 K/uL (0.00-0.22); BASOPHILS % (AUTO) 0.8 % (0.0-2.0); EOSINOPHILS # (AUTO) 0.1 K/uL (0-0.4); EOSINOPHILS % (AUTO) 1.1 % (0.0-4.0); HEMATOCRIT 47.6 % (36-52); HEMOGLOBIN 16.6 g/dL (12.0-18.0); LYMPHOCYTES % (AUTO) 38.6 % (20.5-51.1); MEAN CORPUSCULAR HEMOGLOBIN 31 pg (27-31); MEAN CORPUSCULAR HGB CONC 35 g/dL (33-37); MEAN CORPUSCULAR VOLUME 88.4 fL (80-94); MONOCYTES # (AUTO) 0.5 K/uL (0.8-1.0); NEUTROPHILS # (AUTO) 4.2 K/uL (1.8-7.7); NEUTROPHILS % (AUTO) 53.5 % (42.2-75.2); PLATELET COUNT (AUTO) 275 K/uL (140-450); RED BLOOD CELL COUNT(AUTO) 5.39 MIL/uL (4.20-6.10); RED CELL DISTRIBUTION WIDTH 13.9 % (11.6-13.7); WHITE BLOOD COUNT (AUTO) 7.8 K/uL (4.8-10.8)
[2019-08-30 05:45] LABS: ANION GAP 12.4 (8-16); CARBON DIOXIDE 29.1 mmol/L (21-32); CREATININE 0.9 mg/dL (0.6-1.3); POTASSIUM 3.5 mmol/L (3.5-5.1); TOTAL BILIRUBIN 0.6 mg/dL (0.0-1.0)
[2019-08-30] MEDS ORDERED: MORPHINE SULFATE 2 MG/ML SYR IVP ONE ×2 (05:45)
[2019-08-30] MEDS ORDERED: ACETAMINOPHEN 325 MG TAB PO PRN (06:15)
[2019-08-30] MEDS ORDERED: MORPHINE SULFATE 2 MG/ML SYR IVP PRN (06:15)
[2019-08-30] MEDS ORDERED: ONDANSETRON 4 MG/2 ML VIAL IM/IVP PRN (06:15)
[2019-08-30] MEDS ORDERED: DOCUSATE SODIUM 100 MG GELCAP PO PRN (06:15)
[2019-08-30 06:40] LABS: PHOSPHORUS 3.8 mg/dL (2.5-4.9); THYROID STIMULATING HORMONE 3.01 uIU/mL (0.34-3.74)
[2019-08-30 09:09] LABS: PROTHROMBIN TIME 10.5 secs (10.8-13.4)
[2019-08-30] MEDS: NACL 0.9% 1,000 ML IV SCH ×3 (09:17→19:52)
[2019-08-30] MEDS ORDERED: NITROGLYCERIN 0.4 MG TAB SL PRN (11:20)
[2019-08-30] MEDS: HYDROcodone/APAP 7.5/325 MG 1 TAB PO PRN ×2 (11:55→20:00)
[2019-08-30] MEDS ORDERED: METOPROLOL 25 MG TAB ONE (12:14)
[2019-08-30] MEDS ORDERED: ASPIRIN 81 MG TAB.CHEW ONE (12:15)
[2019-08-30] MEDS: METOPROLOL 25 MG TAB PO SCH (12:25)
[2019-08-30 15:58] VITALS: BP 107/77
[2019-08-30 16:05] LABS: APPEARANCE,URINE CLEAR (CLEAR); BILIRUBIN,URINE NEGATIVE (NEGATIVE); BLOOD, URINE NEGATIVE (NEGATIVE); COLOR,URINE YELLOW (YELLOW); LEUKOCYTE ESTERASE ,URINE NEGATIVE (NEGATIVE); NITRITE, URINE NEGATIVE (NEGATIVE); UGLUCOSE NEGATIVE (NEGATIVE)
[2019-08-30 16:18] LABS: BARBITURATE, URINE NEGATIVE ng/ml (NEG <=200)
[2019-08-30 16:19] LABS: BENZODIAZEPINE, URINE NEGATIVE ng/mL (NEG <=200); CANNABINOID, URINE NEGATIVE ng/mL (NEG <=50); COCAINE, URINE NEGATIVE ng/mL (NEG <=300); OPIATE, URINE POSITIVE ng/mL (NEG <=2000); PHENCYCLIDINE SCREEN,URINE NEGATIVE ng/mL (NEG <=25)
[2019-08-30 20:00] VITALS: BP 113/76
[2019-08-30] MEDS ORDERED: ZOLPIDEM 5 MG TAB PO PRN (23:10)
[2019-08-31] VITALS: BP 123/79
[2019-08-31 04:00] VITALS: BP 131/81
[2019-08-31] MEDS: NACL 0.9% 1,000 ML IV SCH (05:36)
[2019-08-31 06:44] LABS: BASOPHILS # (AUTO) 0.1 K/uL (0.00-0.22); BASOPHILS % (AUTO) 1.6 % (0.0-2.0); EOSINOPHILS # (AUTO) 0.2 K/uL (0-0.4); EOSINOPHILS % (AUTO) 2.7 % (0.0-4.0); HEMATOCRIT 44.5 % (36-52); HEMOGLOBIN 15.1 g/dL (12.0-18.0); LYMPHOCYTES % (AUTO) 38.8 % (20.5-51.1); MEAN CORPUSCULAR HEMOGLOBIN 31 pg (27-31); MEAN CORPUSCULAR HGB CONC 34 g/dL (33-37); MEAN CORPUSCULAR VOLUME 90.8 fL (80-94); MONOCYTES # (AUTO) 0.6 K/uL (0.8-1.0); MONOCYTES % (AUTO) 7.3 % (1.7-9.3); NEUTROPHILS # (AUTO) 3.8 K/uL (1.8-7.7); NEUTROPHILS % (AUTO) 49.6 % (42.2-75.2); PLATELET COUNT (AUTO) 205 K/uL (140-450); RED CELL DISTRIBUTION WIDTH 14.1 % (11.6-13.7); WHITE BLOOD COUNT (AUTO) 7.7 K/uL (4.8-10.8)
[2019-08-31 07:08] LABS: MAGNESIUM 1.8 mg/dL (1.8-2.4); PHOSPHORUS 3.2 mg/dL (2.5-4.9)
[2019-08-31 07:22] LABS: CARBON DIOXIDE 29.1 mmol/L (21-32); CREATININE 0.9 mg/dL (0.6-1.3); POTASSIUM 4.1 mmol/L (3.5-5.1)
[2019-08-31 07:38] LABS: CHOL/HDL RATIO 6.1 (1-4.5)
[2019-08-31 08:00] VITALS: BP 149/122
[2019-08-31] MEDS: METOPROLOL 25 MG TAB PO SCH (08:18)
[2019-08-31] MEDS ORDERED: FLUoxetine 20 MG CAP PO SCH ×2 (09:00)
[2019-08-31] MEDS ORDERED: ATORVASTATIN 20 MG TAB PO SCH (09:00)
[2019-08-31] MEDS ORDERED: METOPROLOL 25 MG TAB PO SCH (09:00)
[2019-08-31] MEDS ORDERED: ASPIRIN 81 MG TAB.CHEW PO SCH ×2 (09:00)
[2019-08-31 11:41] VITALS: BP 124/83
[2019-08-31] MEDS ORDERED: LISI10TA11 PO ×2 (14:13→14:50)
[2019-08-31] MEDS ORDERED: ATOR20TA40 PO ×2 (14:27→14:50)
[2019-08-31] MEDS ORDERED: ASPI81CT95 PO ×2 (14:27→14:50)
[2019-08-31] MEDS ORDERED: FLUO20CA33 PO (17:54)
== END 2019-08-31 16:35 | disposition home or self-care (01) | DRG 917 ==
LOC: MED 04:44 → MTU 06:13
PROVIDERS: ADMIT General Practice; ATTEND General Practice
DX: T43.621A Poisoning by amphetamines, accidental (unintentional), initial encounter (principal); I21.A1 Myocardial infarction type 2; Z68.41 Body mass index [BMI] 40.0-44.9, adult; F15.90 Other stimulant use, unspecified, uncomplicated; I10 Essential (primary) hypertension; F41.1 Generalized anxiety disorder; E66.01 Morbid (severe) obesity due to excess calories; E78.5 Hyperlipidemia, unspecified; Z79.899 Other long term (current) drug therapy; Z79.82 Long term (current) use of aspirin; Z90.49 Acquired absence of other specified parts of digestive tract; Z86.73 Personal history of transient ischemic attack (TIA), and cerebral infarction without residual deficits; I25.2 Old myocardial infarction; Y92.89 Other specified places as the place of occurrence of the external cause
CPT/HCPCS: 36415; 71045; 80048; 80053; 80305; 81003; 83036; 83735; 83880; 84100; 84443; 84484; 85025; 85610; 85730; 87081; 93005; 96374; 96376; 99285; J2270; J7030; Q0092

== ENCOUNTER 2019-09-28 19:27 | Emergency (ER) | payer OTHER, SELFPAY ==
[~2019-09-28] VITALS: Ht 180.3 cm; Wt 127.0 kg
[~2019-09-28 19:27] MED LIST changes: +ATOR20TA40 PO; -CYCL10TA14 PO; +FLUO20CA33 PO; -IBUP-2213 PO
[2019-09-28 19:47] VITALS: BP 165/105
[2019-09-28 21:19] VITALS: BP 147/88
== END 2019-09-28 21:19 | disposition home or self-care (01) ==
LOC: EEVIPCON 19:27 → MED 19:27
DX: U07.1 COVID-19 (principal); F15.10 Other stimulant abuse, uncomplicated; I10 Essential (primary) hypertension; R05 Cough; Z79.899 Other long term (current) drug therapy
CPT/HCPCS: 71045; 82803; 99284; Q0092; U0003

== ENCOUNTER 2022-01-01 10:22 | Emergency (ER) | payer OTHER ==
[~2022-01-01] VITALS: Ht 180.3 cm; Wt 120.3 kg
[~2022-01-01 10:22] MED LIST changes: +FLUO-402 PO; -FLUO20CA33 PO; +LISI-486 PO; -LISI10TA11 PO
--- NOTE | 2022-01-01 10:28 | NUR ---
PT WHEELCHAIR ASSISTED TO ROOM 8
--- NOTE | 2022-01-01 10:43 | NUR ---
Note undone in EDM - 01/01/22 at 1104 by PHSEP 36YO MALE PT C/O CONSISTENT TIGHT 10/21 MID TO LEFT CHEST PAIN X1 HOUR. REPORTS SUDDEN ONSET ALONG W/ LIGHTHEADEDNESS, SOB AND DRY MOUTH. DENIES N/V/D, FEVER OR CHILLS. NOTES S/S X1YEAR AGO. PT AAOX4, ON CHANDELIER MAKER. BED AT LOWEST POSITON, BED RAILS UP X2. HX: HTN, DIABETES, TIA NKA MEDS: METFORMIN, LISINOPRIL, AND ASPIRIN
--- NOTE | 2022-01-01 10:43 | NUR ---
36YO MALE PT C/O CONSISTENT TIGHT 10 MID TO LEFT CHEST PAIN X1 HOUR. REPORTS SUDDEN ONSET WHILE WORKING ALONG W/ LIGHTHEADEDNESS, SOB AND DRY MOUTH. WORKS WITH NICOTINE CHEMICALS , COMPLIANT WITH PPE. DENIES N/V/D, FEVER OR CHILLS. NOTES S/S X1YEAR AGO. PT AAOX4, ON SLIPMAN. BED AT LOWEST POSITON, BED RAILS UP X2. HX: HTN, DIABETES, TIA NKA MEDS: METFORMIN, LISINOPRIL, AND ASPIRIN
--- NOTE | 2022-01-01 11:03 | NUR ---
DESIREE WEISS AT BEDSIDE FOR EVALUATION
--- NOTE | 2022-01-01 11:12 | NUR ---
XRAY AT BEDSIDE
[2022-01-01 11:38] VITALS: BP 139/88
[2022-01-01 12:48] VITALS: BP 140/86
--- NOTE | 2022-01-01 12:48 | NUR ---
Patient discharged with v/s stable. Written and verbal after care instructions FOR CHEMICAL INHALATION given and explained. Patient verbalized understanding. Ambulatory with steady gait. All questions addressed prior to discharge. Advised to follow up with PMD. WORK NOTE PROVIDED
--- NOTE | 2022-01-01 12:49 | NUR ---
Chart checked and completed. The patient's care was reviewed and supervised by Naomie Trevino RN.
== END 2022-01-01 12:48 | disposition home or self-care (01) ==
LOC: MED 10:22
DX: R07.89 Other chest pain (principal); R06.00 Dyspnea, unspecified; I10 Essential (primary) hypertension; Z77.098 Contact with and (suspected) exposure to other hazardous, chiefly nonmedicinal, chemicals; Z86.73 Personal history of transient ischemic attack (TIA), and cerebral infarction without residual deficits
CPT/HCPCS: 71045; 93005; 99283; Q0092